=== PATIENT | male | born 1965 | race African-American/Black ===

== ENCOUNTER → 2020-12-12 08:54 | Outpatient (CLI) | payer OTHER, SELFPAY ==
[2020-12-13 19:44] LABS: SARS-CoV-2 RNA PCR Negative
== END ==
PROVIDERS: PCP Internal Medicine; Visit Provider Otolaryngology
DX: Z01.812 Encounter for preprocedural laboratory examination (principal); Z20.822 Contact with and (suspected) exposure to COVID-19
CPT/HCPCS: C9803; U0003; U0005

== ENCOUNTER 2020-12-12 09:09 | Outpatient (CLI) | payer OTHER, SELFPAY ==
--- NOTE | 2020-12-12 09:30 | ECG_ITS ---
Measurements Intervals [place] Rate: 67 P: 48 SC: 214 QRS: 2 QRSD: 105 T: 30 QT: 359 QTc: 381 Interpretive Statements SINUS RHYTHM WITH FIRST DEGREE AV BLOCK BORDERLINE R WAVE PROGRESSION, ANTERIOR LEADS BASELINE ARTIFACT- I, II, III, AVR, AVL, AVF ABNORMAL ECG Electronically Signed On 12-12-2020 13:55:32 CDT by Osito Smith D.O.
== END 2020-12-12 09:10 | disposition home or self-care (01) ==
LOC: ANHSURGERY 09:16
PROVIDERS: PCP Internal Medicine; Visit Provider Otolaryngology
DX: I10 Essential (primary) hypertension (principal); Z01.818 Encounter for other preprocedural examination; I44.0 Atrioventricular block, first degree
CPT/HCPCS: 93005

== ENCOUNTER 2020-12-15 01:32 | Day surgery (SDC) | payer OTHER, SELFPAY ==
[2020-12-04 14:01] VITALS: BMI 29.8
[2020-12-15] VITALS (9 sets, daily range): BP systolic 105–152; BP diastolic 60–95; PULSE 65–80; RESP 13–20; TEMP 36.7–36.8; O2SAT 96–100; BMI 30.4
--- NOTE | 2020-12-15 10:38 | WPDHPUPDATE1 ---
History and Physical Update Update Date/Time: 12/15/20 10:38 History and Physical has been reviewed, including an updated exam of the patient. There are NO changes in the patient's condition. Risks, benefits, and alternatives have been discussed and questions answered. Patient agrees to proceed with procedure.
--- NOTE | 2020-12-15 10:38 | PM.IMHP ---
H&P: HPI History of Present Illness Date/Time: 12/15/20 10:38 Chief Complaint: Deviated septum Narrative: Pt here for surgery for deviated septum and adhesion in [facility] tnasal passage Review of Systems Review of Systems: All systems reviewed & are unremarkable except as noted in HPI and below [facility] Social History Social History Smoking status: Never smoker Alcohol intake: current Drinks per week: 6 Substance use: never Living arrangements: alone Spiritual care concerns: No Meds Home Medications and Allergies Home Medications Medication Instructions Recorded Confirmed Type metoprolol succinate 100 mg PO QAM 12/04/20 12/04/20 History Allergies Allergy/AdvReac Type Severity Reaction Status Date / Time No Known Allergies Allergy Verified 12/04/20 13:57 Exam Narrative: Exam Narrative: Deviated septum, right nasal adhesion, bilateral turbinate hypetrophy. Rest of exam wnl Assessment and Plan Assessment and plan (1) Deviated septum: Code(s): J34.2 - Deviated nasal septum Status: Acute Assessment and Plan: Here for septoplasty, turbinoplasty and right lysis of nasal adhesions. Refer to outpt H&P for full details. r/b/a discussed and he consents for surgery.
--- NOTE | 2020-12-15 10:52 | P.PNAN_ITS ---
Anes - Initial Pre Proc Eval Procedure: Operation Date: 12/15/20 12:30 Proposed Procedures p Septoplasty, - Juanito Cruz MD s Bilateral Turbinate Reduction, Endoscopic Lysis Left Side Nasal Adhesion - Juanito Cruz MD Date/Time: 12/15/20 10:52 Surgeon: Juanito Cruz MD Pre Op Diagnosis: deviated septum, turbinate hypertrophy Patient Data Age: 54 Gender: M Height: 1.8 m Weight: 97 kg Allergies Allergy/AdvReac Type Severity Reaction Status Date / Time No Known Allergies Allergy Verified 12/15/20 11:05 Home Medications Medication Instructions Recorded Confirmed Type metoprolol succinate 100 mg PO QAM 12/04/20 12/15/20 History hydrocodone-acetaminophen 1 tablet PO Q4H PRN #20 tablet 12/15/20 Rx ECG: Date of Service: 12/12/20 Procedure(s): CA 12 lead EKG Accession Number(s): [id number] cc: ~ Measurements Intervals [place] Rate: 67 P: 48 [place]: 214 QRS: 2 QRSD: 105 T: 30 QT: 359 QTc: 381 Interpretive Statements SINUS RHYTHM WITH FIRST DEGREE AV BLOCK BORDERLINE R WAVE PROGRESSION, ANTERIOR LEADS BASELINE ARTIFACT- I, II, III, AVR, AVL, AVF ABNORMAL ECG Electronically Signed On 12-12-2020 13:55:32 CDT by Osito Smith D.O. Patient hx anesthesia problems: none Family hx anesthesia problems: none [facility] Past Medical History Medical History (Updated 12/15/20 @ 10:53 by Erik Vidal MD) HTN (hypertension) NHL (non-Hodgkin's lymphoma) Overweight (BMI 25.0-29.9) Social History Social History Smoking status: Never smoker Alcohol intake: current Drinks per week: 6 Substance use: never Living arrangements: alone Spiritual care concerns: No Anes - Eval Final PreProcedure Day of Procedure 12/15/20 10:52 Patient weight: overweight Heart: regular rate and rhythm Lungs: clear to auscultation and normal air movement Airway: Mallampati scale class II Neurological: alert and oriented Last oral intake: >/= 8 hours ASA classification: III Emergent: no Anesthetic plan: proceed Anesthesia type and monitoring: general ETT Informed Consent: The patient's anesthetic plan and its attendant risks and benefits were discussed with the patient/family/POA. Questions were solicited and answers provided to the satisfaction of the patient/family/POA.
[2020-12-15] MEDS: OXYMETAZOLINE HCL 0.05% NAS 15 ML BTL (*BKC) 1 SPRAY NASAL (11:13)
[2020-12-15] MEDS: ACETAMINOPHEN 500 MG TABLET 1000 MG PO (11:13)
--- NOTE | 2020-12-15 11:18 | SUR.PREOP ---
CLARIFIED WITH PT, RIGHT NASAL ADHESION. ALSO CLARIFIED WITH DR PACK
[2020-12-15] MEDS: LACTATED RINGERS 1,000 ML 30 ML IV CONT ×2 (11:31→12:36)
--- NOTE | 2020-12-15 11:42 | SUR.PREOP ---
1130; offered restroom to pt. Pt refused
[2020-12-15] MEDS: ceFAZolin 2 GM/D5W 50 ML 2 GM/50 ML BAG IVPB (11:43)
[2020-12-15] MEDS: LIDO 1%/EPINEPHRINE 1:100,000 50 ML VIAL 30 ML INFILTRATE (12:02)
--- NOTE | 2020-12-15 12:30 | P.OP_ITS ---
Procedure Note - Detailed Date of procedure: 12/15/20 Pre-op diagnosis: deviated septum, turbinate hypertrophy right nasal adhesion Post-op diagnosis: same Procedure performed: Septoplasty, bilateral inferior turbinoplasty, lysis of right nasal adhesion Description of procedure: After obtaining informed consent and proper site verification the patient was brought to the operating room and placed on the operating table in the supine position. They were placed under general endotracheal anesthesia by the anesthesia provider. The patient was then draped in standard fashion for septoplasty and turbinoplasty. A timeout was performed and the correct patient and procedure were verified. The nasal cavity was injected with 1% lidocaine with 1-100,000 epinephrine and packed with afrin-soaked cottonoid pledgets. ? Attention was then directed to the nasal septum. A hemitransfixion incision was made in the left caudal septum and a mucoperichondrial flap was elevated in the usual fashion. The flap was elevated under endoscopic visualization and the remainder of the case was performed with endoscopic assistance. Using a D- knife, an incision was made through the cartilaginous septum with care to preserve the appropriate caudal and dorsal ?L-strut? of cartilage. The cartilage was then disarticulated from the bony-cartilaginous junction and the deviated cartilage was removed. Further deviated bone and cartilage was removed from the maxillary crest and posterior bony septum with care to avoid injury to the mucoperichondrial flap using a combination of dissection and Huey- Gregory forceps. Once this was completed, the hemitransfixion incision was closed using simple interrupted 4-0 chromic suture. A quilting stitch to reapproximate the mucoperichondrial flaps was then placed using 4-0 plain gut suture on a Dayron needle. The right nasal passage was scarred closed due to previous packing from epistaxis. The septum and right inferior turbinate were scarred together. This was carefully dissected with a 15 blade to release adhesion and reveal the now midline septum following septoplasty. A small rent was created in the mucoperichondrial flap during this. ? Next attention was directed to the turbinates. Using a 0? telescope and 2mm turbinate blade microdebrider, a stab incision was made in the anterior face of the turbinate and dissection was carried posterior to perform submucosal res ection. Next the turbinate was outfractured using a blunt instrument. A similar procedure was then performed on the right-hand side without difficulty. Between the lysis of adhesion and outfracture of the right inferior turbinate, the adhesion was completely released and that nasal passages was widely patent. Anaya splints covered in mupirocin ointment were placed in the nasal cavity and secured to the membranous septum using a 3-0 Prolene suture. ?The patient was awakened from general anesthesia extubated in the operating room, and transported to the recovery room in stable condition without complication. Anesthesia: GETA Surgeon: Juanito Cruz MD Estimated blood loss (mL): 10 Drains: No Packing: Yes (anaya splints) Pathology: none sent Complications: No immediate complications Condition: stable Disposition: PACU Findings: Right nasal adhesion and deviated septum
== END 2020-12-15 14:40 | disposition home or self-care (01) ==
PROVIDERS: PCP Internal Medicine; Visit Provider Otolaryngology
PROC: (CPT 30520; principal; 2020-12-15 12:30)
PROC: (CPT 30140; 2020-12-15 12:30)
DX: J34.2 Deviated nasal septum (principal); J34.3 Hypertrophy of nasal turbinates; J34.89 Other specified disorders of nose and nasal sinuses; I10 Essential (primary) hypertension; Z85.72 Personal history of non-Hodgkin lymphomas
CPT/HCPCS: 30140; 30520; 93005; A9270; C9803; J0330; J0690; J2250; J2405; J2704; J3010; J7120; U0003; U0005